=== PATIENT | male | born 1980 | race Caucasian/White ===

== ENCOUNTER 2024-06-16 09:46 | Day surgery (SDC) | payer BC ==
[~2024-06-16] VITALS: Ht 177.8 cm; Wt 56.1 kg
[~2024-06-16 09:46] MED LIST: CEPH500 PO; HYDACE5 PO; Lactated Ringer's 1,000 ML IV ONE; NAPR500 PO; OXYACE5T PO; RXHYDACE PO; propofoL 50 ML IV ONE
[2024-06-16] MEDS ORDERED: Lactated Ringer's 1,000 ML IV ONE (11:18)
[2024-06-16] MEDS ORDERED: Glycopyrrolate 0.2 MG/ML 1MLVIAL ONE (12:21)
[2024-06-16 13:20] VITALS: BP 105/70
== END 2024-06-16 13:00 | disposition home or self-care (01) ==
LOC: ORSCSDS 09:46
PROVIDERS: Internal Medicine Gastroenterology
PROC: 0DBK8ZX Excision of Ascending Colon, Via Natural or Artificial Opening Endoscopic, Diagnostic (ICD-10-PCS; principal; 2024-06-16 11:00)
PROC: 0DBN8ZX Excision of Sigmoid Colon, Via Natural or Artificial Opening Endoscopic, Diagnostic (ICD-10-PCS; principal; 2024-06-16 11:00)
DX: K62.5 Hemorrhage of anus and rectum (principal); D12.2 Benign neoplasm of ascending colon; D12.5 Benign neoplasm of sigmoid colon; Z80.0 Family history of malignant neoplasm of digestive organs; F17.210 Nicotine dependence, cigarettes, uncomplicated
CPT/HCPCS: 88305; J2704; J7120